=== PATIENT | male | born 2000 | race Caucasian/White ===

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

== ENCOUNTER → 2018-11-20 | Outpatient (CLI) | payer BC, OTHER ==
[2017-09-04 15:30] VITALS: BP 113/52
[~2018-11-20] MED LIST changes: -HYDROmorphone 2 MG/ML VIAL IV; +IBUPROFEN PO; -IV RINGERS,LACTATED 1000ML 1,000 ML IV; -LIDOCAINE 1% PF 2 ML VIAL. ID; -LIDOCAINE 1% PF 5 ML VIAL.; -MORPHINE SULFATE 2 MG/ML DISP.SYRIN. IV; +MULT1TAB52 PO; -ONDANSETRON PF 4 MG/2 ML VIAL. IV; +OXYC1TAB15 PO; +OXYC5TAB4 PO; -PROCHLORPERAZINE 10 MG/2 ML VIAL. IV; -PROPOFOL 20 ML IV; -ROCURONIUM 50 MG/5 ML VIAL.; +SENN-37 PO; -fentaNYL PF VIAL 100 MCG/2 ML VIAL; -fentaNYL PF VIAL 100 MCG/2 ML VIAL IV
--- NOTE | 2018-11-20 13:10 | KCIC ---
MR of the sacrum without contrast HISTORY: Coccyx pain. Pain when sitting. Pain is chronic. TECHNIQUE: Routine multiplanar sequences are obtained through the sacrum and coccyx. FINDINGS: No evidence of acute fracture, marrow edema or aggressive bone destruction of the sacrum or coccyx. The neural foramina are patent. Sacroiliac joints are within normal limits. No abnormal soft tissue edema or fluid collection is seen. IMPRESSION: No significant sacrococcygeal abnormality is seen. Electronically signed by: Álvaro Mtz MD (11/20/2018 1:07 PM) [id number]
== END | disposition home or self-care (01) ==
LOC: KCIC MRI 10:02
PROVIDERS: ATTEND Family Medicine Sports Medicine
DX: M53.3 Sacrococcygeal disorders, not elsewhere classified (principal)
CPT/HCPCS: 72195